=== PATIENT | female | born 1990 | race Caucasian/White ===

== ENCOUNTER 2021-01-20 09:25 | Emergency (ER) | payer OTHER ==
[~2021-01-20 09:25] MED LIST: COLACE 100MG C100 MG PO; GLUCOPHAGE XR500 M1 PO; HYDROCHLOROTHIA25 MG PO; IBU600 MG PO; NIFEDIPINE ER30 M1 PO; NORCO 5-325 TA1 EACH PO; PRENATAL VITAM1 EAC4 PO; PROZAC20 MG PO; VENTOLIN HFA 66.7 GM INH
[2021-01-20 10:34] LABS: HEMOGLOBIN 11.7 gm/dl (12.3-15.3); RED BLOOD COUNT 4.37 M/UL (4.00-5.10); WHITE BLOOD COUNT 10.6 K/UL (4.5-11.0)
[2021-01-20 11:02] LABS: BUN/CREATININE RATIO 16 (0-10)
== END 2021-01-20 11:47 | disposition home or self-care (01) ==
LOC: ER1 09:25
PROVIDERS: Physician Assistant
DX: O20.0 Threatened abortion (principal); O10.912 Unspecified pre-existing hypertension complicating pregnancy, second trimester; Z90.49 Acquired absence of other specified parts of digestive tract; Z3A.15 15 weeks gestation of pregnancy; Z79.899 Other long term (current) drug therapy; Z88.2 Allergy status to sulfonamides; Z88.1 Allergy status to other antibiotic agents
CPT/HCPCS: 80053; 81001; 85025; 86850; 86900; 86901; 99284; J2790

== ENCOUNTER 2021-03-01 18:48 | Outpatient (CLI) | payer OTHER | END 2021-03-01 21:05 | disposition home or self-care (01) | LOC: GENOP 18:48 | DX: O20.8 Other hemorrhage in early pregnancy (principal); O10.912 Unspecified pre-existing hypertension complicating pregnancy, second trimester; O99.352 Diseases of the nervous system complicating pregnancy, second trimester; G43.909 Migraine, unspecified, not intractable, without status migrainosus; O26.612 Liver and biliary tract disorders in pregnancy, second trimester; K74.60 Unspecified cirrhosis of liver; O99.342 Other mental disorders complicating pregnancy, second trimester; F32.9 Major depressive disorder, single episode, unspecified; O99.512 Diseases of the respiratory system complicating pregnancy, second trimester; J45.909 Unspecified asthma, uncomplicated; O99.282 Endocrine, nutritional and metabolic diseases complicating pregnancy, second trimester; E28.2 Polycystic ovarian syndrome; Z3A.20 20 weeks gestation of pregnancy; Z79.899 Other long term (current) drug therapy | CPT/HCPCS: G0463 ==

== ENCOUNTER 2021-05-31 17:17 | Outpatient (CLI) | payer OTHER | END 2021-05-31 19:57 | disposition home or self-care (01) | LOC: GENOP 17:17 | DX: O36.8130 Decreased fetal movements, third trimester, not applicable or unspecified (principal); O24.414 Gestational diabetes mellitus in pregnancy, insulin controlled; O10.013 Pre-existing essential hypertension complicating pregnancy, third trimester; O99.891 Other specified diseases and conditions complicating pregnancy; R50.9 Fever, unspecified; O99.343 Other mental disorders complicating pregnancy, third trimester; F31.9 Bipolar disorder, unspecified; F41.9 Anxiety disorder, unspecified; O99.513 Diseases of the respiratory system complicating pregnancy, third trimester; J45.909 Unspecified asthma, uncomplicated; O99.353 Diseases of the nervous system complicating pregnancy, third trimester; G43.909 Migraine, unspecified, not intractable, without status migrainosus; O99.613 Diseases of the digestive system complicating pregnancy, third trimester; K74.60 Unspecified cirrhosis of liver; K58.9 Irritable bowel syndrome, unspecified; O99.283 Endocrine, nutritional and metabolic diseases complicating pregnancy, third trimester; E28.2 Polycystic ovarian syndrome; Z88.2 Allergy status to sulfonamides; Z91.018 Allergy to other foods; Z88.1 Allergy status to other antibiotic agents; Z91.040 Latex allergy status; Z3A.31 31 weeks gestation of pregnancy | CPT/HCPCS: 59025 ==

== ENCOUNTER 2021-06-29 05:26 | Inpatient (IN) | payer OTHER ==
[~2021-06-29] VITALS: Ht 162.6 cm; Wt 119.3 kg
[2021-06-29] MEDS ORDERED: NOVOLOG 10100 UNITS/ INJ ×2 (06:14→06:15)
[2021-06-29] MEDS ORDERED: NOVOLIN N100 UNIT/1 SQ (06:25)
[2021-06-29 07:23] LABS: HEMOGLOBIN 11.6 gm/dl (12.3-15.3); RED BLOOD COUNT 4.2 M/UL (4.00-5.10); WHITE BLOOD COUNT 9.5 K/UL (4.5-11.0)
[2021-06-29 07:41] LABS: BUN/CREATININE RATIO 19 (0-10)
[2021-06-30 06:54] LABS: HEMOGLOBIN 11.5 gm/dl (12.3-15.3)
[2021-07-01] MEDS ORDERED: IBUPROFEN800 MG PO (11:06)
[2021-07-01] MEDS ORDERED: DOCUSATE SODIU100 MG PO (11:06)
[2021-07-01] MEDS ORDERED: HYDROCODONE-AC1 EAC1 PO (11:06)
== END 2021-07-01 13:40 | disposition home or self-care (01) | DRG 788 ==
LOC: OB 05:26
PROVIDERS: ADMIT Obstetrics & Gynecology
PROC: 10D00Z1 Extraction of Products of Conception, Low, Open Approach (ICD-10-PCS; principal; 2021-06-29 07:30)
DX: O13.4 Gestational [pregnancy-induced] hypertension without significant proteinuria, complicating childbirth (principal); O34.211 Maternal care for low transverse scar from previous cesarean delivery; E66.01 Morbid (severe) obesity due to excess calories; O99.214 Obesity complicating childbirth; O24.424 Gestational diabetes mellitus in childbirth, insulin controlled; Z20.822 Contact with and (suspected) exposure to COVID-19; O99.52 Diseases of the respiratory system complicating childbirth; J45.909 Unspecified asthma, uncomplicated; G43.909 Migraine, unspecified, not intractable, without status migrainosus; F32.9 Major depressive disorder, single episode, unspecified; O99.892 Other specified diseases and conditions complicating childbirth; O99.344 Other mental disorders complicating childbirth; Z88.0 Allergy status to penicillin; Z3A.37 37 weeks gestation of pregnancy; Z88.2 Allergy status to sulfonamides; Z37.0 Single live birth
CPT/HCPCS: 36415; 80053; 81001; 82800; 82962; 85014; 85018; 85025; 85461; 86850; 86900; 86901; C9113; J0690; J1885; J2250; J2274; J2300; J2405; J2590; J3010; J7120

== ENCOUNTER 2021-07-06 22:14 | Emergency (ER) | payer OTHER ==
[~2021-07-06 22:14] MED LIST changes: +DOCUSATE SODIU100 MG PO; +HYDROCODONE-AC1 EAC1 PO; +IBUPROFEN800 MG PO; +NOVOLIN N100 UNIT/1 SQ; +NOVOLOG 10100 UNITS/ INJ
[2021-07-06 23:06] LABS: HEMOGLOBIN 10.8 gm/dl (12.3-15.3); RED BLOOD COUNT 4.07 M/UL (4.00-5.10); WHITE BLOOD COUNT 9.2 K/UL (4.5-11.0)
[2021-07-06 23:29] LABS: BUN/CREATININE RATIO 33 (0-10)
[2021-07-07] MEDS ORDERED: PROCARDIA XL30 MG PO (01:21)
[2021-07-07] MEDS ORDERED: HYDRALAZINE HCL10 MG PO (06:42)
[2021-07-09] MEDS ORDERED: LABETALOL HCL100 MG PO (08:38)
== END 2021-07-07 01:40 | disposition home or self-care (01) ==
LOC: ER1 22:14
PROVIDERS: Physician Assistant
DX: O16.5 Unspecified maternal hypertension, complicating the puerperium (principal); Z90.49 Acquired absence of other specified parts of digestive tract; Z88.2 Allergy status to sulfonamides; Z88.1 Allergy status to other antibiotic agents; Z91.040 Latex allergy status
CPT/HCPCS: 71045; 80053; 81001; 82550; 82553; 83874; 84484; 85025; 85610; 93005; 96374; 99285; J1885

== ENCOUNTER 2021-07-07 03:43 | Emergency (ER) | payer OTHER ==
[~2021-07-07 03:43] MED LIST changes: +PROCARDIA XL30 MG PO
[2021-07-07] MEDS ORDERED: HYDRALAZINE HCL10 MG PO (06:42)
[2021-07-09] MEDS ORDERED: LABETALOL HCL100 MG PO (08:38)
== END 2021-07-07 06:50 | disposition home or self-care (01) ==
LOC: ER1 03:43
DX: O16.5 Unspecified maternal hypertension, complicating the puerperium (principal); O90.89 Other complications of the puerperium, not elsewhere classified; R07.89 Other chest pain; Z88.2 Allergy status to sulfonamides; Z88.1 Allergy status to other antibiotic agents
CPT/HCPCS: 82550; 82553; 83874; 84484; 93005; 99285; Q9967

== ENCOUNTER 2021-07-07 23:37 | Emergency (ER) | payer OTHER ==
[~2021-07-07 23:37] MED LIST changes: +HYDRALAZINE HCL10 MG PO
[2021-07-08 02:02] LABS: HEMOGLOBIN 10.8 gm/dl (12.3-15.3); RED BLOOD COUNT 4.02 M/UL (4.00-5.10); WHITE BLOOD COUNT 9.2 K/UL (4.5-11.0)
[2021-07-08 02:33] LABS: BUN/CREATININE RATIO 26 (0-10)
[2021-07-09] MEDS ORDERED: LABETALOL HCL100 MG PO (08:38)
== END 2021-07-08 01:36 | disposition admitted as inpatient to this hospital (09) ==
LOC: ER1 23:37
PROVIDERS: Family Medicine
DX: O14.93 Unspecified pre-eclampsia, third trimester (principal); O99.283 Endocrine, nutritional and metabolic diseases complicating pregnancy, third trimester; E87.6 Hypokalemia; Z3A.37 37 weeks gestation of pregnancy
CPT/HCPCS: 80053; 82550; 82553; 83874; 84484; 85025; 99284